=== PATIENT | male | born 1995 | race Caucasian/White ===

== ENCOUNTER 2017-08-23 22:51 | Emergency (ER) | payer SELFPAY ==
[2017-08-23 23:01] VITALS: BP 128/59
--- NOTE | 2017-08-23 23:13 | EDPHY ---
H & P Time Seen by Provider: 08/23/17 23:15 HPI/ROS: Chief complaint: Q-tip stuck in left ear History of present illness: This is a 21-year-old male who presents to the emergency department concerned he has a Q-tip stuck in his left ear. Patient was cleaning his ear with a Q-tip when he pulled out part of it broke off. He attempted to dig it out believes healing got part of it out. He started to flush it out. However he still feels he can feel something in it. No report of discharge from the ear. No hearing loss. No tinnitus. No headache, dizziness or vertigo. Smoking Status: Never smoked Physical Exam: General: Alert, nontoxic ENT: Tympanic membranes are clear, left external auditory canal is erythematous , it appears irritated from patient trying to pull a Q-tip out. There is no actual foreign body visualized. The right external auditory canals, external ear and surrounding soft tissue including over the mastoids are unremarkable. Nasopharynx is not injected. There is no rhinorrhea. Oropharynx is not injected. There is no edema. Skin: Soft tissue of the head and neck unremarkable. Neurologic: Alert and oriented x4. Ambulating without difficulty. Constitutional: Initial Vital Signs Temperature (C) 36.7 C 08/23/17 23:00 Heart Rate 72 08/23/17 23:00 Respiratory Rate 18 08/23/17 23:00 Blood Pressure 128/59 H 08/23/17 23:00 O2 Sat (%) 98 08/23/17 23:00 O2 Delivery Mode Room Air Allergies/Adverse Reactions: No Known Allergies Allergy (Unverified 08/23/17 23:00) MDM/Departure - [facility] ED Course/Re-evaluation: Patient seen under the supervision of my secondary supervising physician Dr. Pj Robledo. Patient presents concerned he has a foreign body in his left ear. Visualization does not show evidence of a foreign body or tympanic membrane injury. External auditory canals appears very irritated. He is discharged home. Symptomatic care at home is discussed. He is asked to follow up with ENT for recheck and referral information is given. He is concerned he might lose his balance although he is not currently having any symptoms, discussed use of meclizine. Return precautions are given. Differential Diagnosis: Included but not limited to foreign body in external auditory canal, tympanic membrane injury - Depart Disposition: Home, Routine, Self-Care Clinical Impression: Ear foreign body Qualifiers: Encounter type: initial encounter Laterality: left Qualified Code(s): T16.2XXA - Foreign body in left ear, initial encounter Condition: Good Instructions: Ear Foreign Body (ED) Additional Instructions: Follow-up with an ears Nose and Throat doctor on Friday for continued evaluation and care You can use meclizine as needed for symptoms If symptoms worsen or new symptoms develop return to the emergency room for recheck Referrals: NONE *PRIMARY CARE P,. [Primary Care Provider] - As per Instructions Yared Chacko MD [Medical Doctor] - As per Instructions
== END 2017-08-23 23:26 | disposition home or self-care (01) ==
DX: T16.2XXA Foreign body in left ear, initial encounter (principal); X58.XXXA Exposure to other specified factors, initial encounter; Y99.8 Other external cause status; Y93.89 Activity, other specified